=== PATIENT | female | born 1990 | race Asian ===

== ENCOUNTER 2016-09-17 04:07 | Inpatient (IN) | payer SELFPAY ==
[~2016-09-17] VITALS: Ht 144.8 cm; Wt 50.3 kg
[2016-09-17] MEDS ORDERED: LR 1,000 ML IV SCH (04:44)
[2016-09-17] MEDS ORDERED: LR 500 ML IV ONE (04:44)
[2016-09-17] MEDS ORDERED: OXYTOCIN/NORMAL SALINE 1,000 ML IV SCH (04:44)
[2016-09-17] MEDS ORDERED: NALBUPHINE HCL 10 MG/ML AMP IVP PRN (04:45)
[2016-09-17] MEDS ORDERED: TERBUTALINE SULFATE 1 MG/ML VIAL SUBCUT ONE (04:45)
[2016-09-17 04:52] VITALS: BP 106/75; PULSE 83; RESP 20; TEMP 97.7
[2016-09-17 05:43] LABS: BASOPHILS % (AUTO) 0.5 % (0.0-2.0); EOSINOPHILS # (AUTO) 0.1 K/uL (0.0-0.4); HEMATOCRIT 36.4 % (36-48); HEMOGLOBIN 12.5 g/dL (12.0-16.0); LYMPHOCYTES # (AUTO) 1.2 K/uL (1.0-5.5); LYMPHOCYTES % (AUTO) 24.4 % (20.5-51.5); MEAN CORPUSCULAR HEMOGLOBIN 31 pg (27-31); MEAN CORPUSCULAR HGB CONC 34 % (32-36); MEAN CORPUSCULAR VOLUME 91 fL (79.0-98.0); MONOCYTES # (AUTO) 0.5 K/uL (0.0-1.0); NEUTROPHILS # (AUTO) 3.1 K/uL (1.8-7.7); NEUTROPHILS % (AUTO) 61.1 % (40.0-70.0); PLATELET COUNT (AUTO) 163 K/uL (130-430); RED CELL DISTRIBUTION WIDTH 13.9 % (9.0-15.0); WHITE BLOOD COUNT (AUTO) 4.9 K/uL (4.8-10.8)
[2016-09-17] MEDS ORDERED: OXYCODONE/ACETAMINOPHEN 5-325 TABLET PO PRN (14:00)
[2016-09-17] MEDS ORDERED: HYDROcodone/ACETAMIN 5-325 MG TAB (NORCO/ VICODIN) PO PRN (14:00)
[2016-09-17] MEDS ORDERED: DERMOPLAST SPRAY TP PRN (14:00)
[2016-09-17] MEDS ORDERED: TEMAZEPAM 15 MG CAPSULE PO PRN (14:00)
[2016-09-17] MEDS ORDERED: METHYLERGONOVINE MALEATE 0.2 MG/ML AMP IM PRN (14:00)
[2016-09-17] MEDS ORDERED: MEASLES,MUMPS&RUBELLA VACC/PF 12500 UNIT/0.5 ML VIAL SUBQ PRN (14:00)
[2016-09-17] MEDS ORDERED: DIPH-TET-PERTUS Vaccine 0.5 ML VIAL (ADACEL) I.M. PRN (14:00)
[2016-09-17] MEDS ORDERED: OXYTOCIN 10 UNIT/ML VIAL IM PRN (14:00)
[2016-09-17] MEDS ORDERED: MINERAL OIL 30 ML UDC PO ONE (15:00)
[2016-09-17] MEDS: IBUPROFEN 800 MG TABLET PO PRN ×2 (18:08→23:40)
[2016-09-17] MEDS ORDERED: SENNOSIDES/DOCUSATE SODIUM 1 TAB TABLET(SENOKOT-S) PO SCH (21:00)
[2016-09-18] MEDS: IBUPROFEN 800 MG TABLET PO PRN ×3 (06:07→23:45)
[2016-09-18 06:19] LABS: HEMATOCRIT 32.7 % (36-48); HEMOGLOBIN 11.1 g/dL (12.0-16.0)
== END 2016-09-19 11:30 | disposition home or self-care (01) | DRG 775 ==
LOC: SPU 04:07
PROVIDERS: ADMIT Obstetrics & Gynecology; ATTEND Obstetrics & Gynecology
PROC: 10D07Z6 Extraction of Products of Conception, Vacuum, Via Natural or Artificial Opening (ICD-10-PCS; principal; 2016-09-17)
PROC: 0W8NXZZ Division of Female Perineum, External Approach (ICD-10-PCS; 2016-09-17)
DX: O75.89 Other specified complications of labor and delivery (principal); Z37.0 Single live birth; Z3A.39 39 weeks gestation of pregnancy
CPT/HCPCS: 36415; 81002-TC; 85018-TC; 85025; 86592; 86886; 86900; 86901; J2300; J2590